=== PATIENT | male | born 1985 | race Caucasian/White ===

== ENCOUNTER 2016-07-28 05:12 | Inpatient (IN) | payer OTHER ==
[2016-07-09 14:11] VITALS: BMI 27.0
--- NOTE | 2016-07-25 16:15 | HISTORY & PHYSICAL EXAMINATION ---
DATE OF ADMISSION: 07/28/2016 CHIEF COMPLAINT: He presents with lumbar spine pain. HISTORY OF PRESENT ILLNESS: Arvin is a 31-year-old patient. 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 He has a complete void of bone at L5-S1 demonstrated by a nonunion. He also has some malplacement of some pedical screws from prior lumbar surgery. I think the screws were probably placed perfectly, they have migrated out. This is causing some instability to the lumbar spine. He has no fevers, sweats or chills. He has lumbar mechanical back pain. Better when resting. It is worse when he is up moving around walking. He is scheduled for surgery on the 07/[address] Jayy Cardona as well as Dr. Armenta. PREVIOUS MEDICAL HISTORY: Negative. PRIOR SURGICAL HISTORY: He had 2 back surgeries on his back. One is for a discectomy other is for a spinal fusion. ALLERGIES: No allergies to medications. CURRENT MEDICATIONS: List includes oxycodone, diazepam and ibuprofen. FAMILY MEDICAL HISTORY: Positive for diabetes. Negative for heart disease, stroke, blood clots, DVT, PE or cancer. SOCIAL HISTORY: He is single, never drinks, chews tobacco, very active lifestyle. REVIEW OF SYSTEMS: RESPIRATORY: Positive shortness of breath. PSYCHIATRIC: Positive for sleep problems. MUSCULOSKELETAL: Positive for joint pain, stiffness, weakness. NEUROLOGICAL: Positive or tingling. PHYSICAL EXAMINATION: CONSTITUTIONAL: Alert and oriented x3. He is 5 feet 11 inches, 198 pounds, no apparent distress. He is appropriately dressed for his age. CARDIOVASCULAR: He has got brisk capillary refill in distal extremities. Normal S1 and S2, no S3 was auscultated. RESPIRATORY: Equal and bilateral breath sounds. No rales, rhonchi or wheezing upon auscultation. GASTROINTESTINAL: Abdomen is soft, nontender. Normal bowel sounds auscultated. No organomegaly noted with percussion. INTEGUMENTARY: No skin rashes, lesions, no breakages of the skin. MUSCULOSKELETAL: He does have pain with forward flexion and extension. He ambulates without too much difficulty. There is slight loss of sensation along the L5 and S1 nerve root distribution. No pain with palpation or tenderness over his lumbar spine. No pain with straight leg raises bilaterally. X-rays were reviewed in our office and they demonstrate degenerative changes and a marked nonunion at L5-S1. 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 PLAN: At this time, he is being preoped for surgery on the 28 of July; it is going to be a posterior and anterior approach. First, we will start with a posterior approach with decompression at the L5-S1 lumbar levels. Also, remove the implants and readjustment of the implants at that time. This will then be followed with an anterior approach. The approach will be done by Dr. Armenta. This will be done in the same setting. The same anesthesia for the anterior lumbar interbody fusion will be the same as posterior. We will actually take out old implants from the anterior approach and replace them with good constructs from the [employer] and fill this with a combination of demineralized bone matrix and osteogenic protein. The risks of the surgery and the benefits were described to the patient and he is in full understanding and in compliance with that. Expectations were also discussed. We did give him medication for pain for his discharge. Provided him with a back brace as well.
[~2016-07-28] VITALS: Ht 180.3 cm; Wt 90.0 kg
[~2016-07-28 05:12] MED LIST: HYDR-5688 PO
[2016-07-28 05:37] VITALS: BP 124/91; PULSE 101; TEMP 36.9; O2SAT 97; Ht 180.3 cm; Wt 90.0 kg
[2016-07-28] MEDS ORDERED: CEFAZOLIN 2000 MG/60 ML D5W 60 ML IV SCH (06:00)
[2016-07-28] MEDS ORDERED: LACTATED RINGER'S 500 ML IV SCH (06:00)
[2016-07-28] MEDS ORDERED: NSS 1000ML IV SCH (06:00)
[2016-07-28] MEDS ORDERED: LACTATED RINGER'S 1000ML IV SCH (06:00)
[2016-07-28] MEDS ORDERED: EpHEDrine SULFATE INJ 50 MG/ML AMP ONE (06:22)
[2016-07-28] MEDS ORDERED: FENTANYL CITRATE INJ 50 MCG/1 ML 2 ML VIAL ONE ×3 (06:22→09:00)
[2016-07-28] MEDS ORDERED: ROCURONIUM BROMIDE 10 MG/ML 5 ML VIAL ONE ×4 (06:22→12:51)
[2016-07-28] MEDS ORDERED: NEOSTIGMINE METHYLSULFATE 5 MG/5 ML SYR ONE (06:22)
[2016-07-28] MEDS ORDERED: MIDAZOLAM HCL 1 MG/ML 2ML VIAL ONE (06:22)
[2016-07-28] MEDS ORDERED: GLYCOPYRROLATE INJ 0.2 MG/ML VIAL ONE (06:22)
[2016-07-28] MEDS ORDERED: DEXAMETHASONE SOD INJ 4 MG/ML VIAL ONE ×2 (06:22→08:01)
[2016-07-28] MEDS ORDERED: PROPOFOL IV EMULSION 10 MG/ML 20 ML VIAL IV ONE (06:22)
[2016-07-28] MEDS ORDERED: ONDANSETRON INJ 2 MG/ML 2 ML VIAL ONE ×2 (06:22→08:01)
[2016-07-28] MEDS ORDERED: LIDOCAINE HCL 2% 2 ML VIAL (20MG/ML) ONE (06:22)
[2016-07-28] MEDS ORDERED: PHENYLEPHRINE HCL INJ 10 MG/ML VIAL ONE (06:22)
[2016-07-28] MEDS ORDERED: ACETAMINOPHEN 1000 MG/100 ML IV IV ONE (06:55)
[2016-07-28] MEDS ORDERED: HYDROmorphone INJ 2 MG/ML SYR/VIAL ONE ×3 (06:57→14:34)
[2016-07-28] MEDS ORDERED: ONDANSETRON INJ 2 MG/ML 2 ML VIAL IV PRN ×2 (07:00→14:30)
[2016-07-28] MEDS ORDERED: HYDROmorphone INJ 1 MG/ML SYR IV PRN (07:00)
[2016-07-28] MEDS ORDERED: EpHEDrine SULFATE INJ 50 MG/ML AMP IV PRN (07:00)
[2016-07-28] MEDS ORDERED: NALOXONE HCL 0.4 MG/1 ML VIAL/CARP IV PRN ×2 (07:00→14:30)
[2016-07-28] MEDS ORDERED: LABETALOL HCL IV 5 MG/ML 20ML IV PRN (07:00)
[2016-07-28] MEDS ORDERED: FLUMAZENIL 0.1 MG/1 ML 10 ML VIAL IV PRN (07:00)
[2016-07-28] MEDS ORDERED: PHENYLEPHRINE 100MCG/ML 5ML SYR IV PRN (07:00)
[2016-07-28] MEDS ORDERED: ATROPINE SULFATE 0.1 MG/ML 5ML SYR IV PRN (07:00)
[2016-07-28] MEDS ORDERED: MEPERIDINE HCL 25 MG/ML CARP IV PRN (07:00)
--- NOTE | 2016-07-28 07:15 | History & Physical Bridge Note ---
H&P Re-Evaluation Bridge Note: I have examined the patient, reviewed the History & Physical and in the interval since the performance of the History & Physical I have noted the following changes of clinical significance:I had a long discussion with the patient and his mother. There is a chance of bleeding of course. We discussed retrograde ejaculation. They understand. No changes noted
--- NOTE | 2016-07-28 07:18 | History & Physical Bridge Note ---
H&P Re-Evaluation Bridge Note: I have examined the patient, reviewed the History & Physical and in the interval since the performance of the History & Physical I have noted the following changes of clinical significance: No changes noted
[2016-07-28] MEDS ORDERED: KETAMINE HCL INJ 50 MG/ML 10 ML VIAL ONE (08:16)
[2016-07-28] MEDS ORDERED: ESMOLOL HCL 10 MG/ML 10 ML VIAL ONE (08:38)
[2016-07-28] MEDS ORDERED: CEFAZOLIN SOD 1 GM VIAL ONE (11:47)
[2016-07-28] MEDS ORDERED: THROMBIN FOR SOLN 20000 UNIT KIT TOP ONE (13:45)
[2016-07-28] MEDS ORDERED: BACITRACIN 50000 UNIT VIAL IR ONE (13:45)
[2016-07-28] MEDS ORDERED: GELATIN SPONGE SZ 100 TOP ONE (13:45)
[2016-07-28] MEDS ORDERED: BUPIVACAINE/EPINEPHRINE 0.5% MPF 1:200,000 30 ML VIAL INJ ONE (13:45)
[2016-07-28] MEDS ORDERED: VANCOMYCIN HCL 1000MG/20ML VIAL TOP ONE (13:48)
[2016-07-28] MEDS ORDERED: SODIUM CHLORIDE 0.9% 1000ML 1,000 ML IV SCH (14:22)
--- NOTE | 2016-07-28 14:25 | [facility] Operative Report ---
Operative Report Operative Date Jul 28, 2016. Pre-Operative Diagnosis Non-union with degenerative changes L5-S1 Procedure(s) Performed ALIF L5-S1. removal of implants posterior L5-S1. decompression L5, S1. bilateral Surgeon Dr. Cardona and Dr. Armenta Chemical Laboratory Technician Surgeon(s) HARRISON Shirley and HARRISON Paz Estimated Blood Loss 150 ml Specimens A) Removed Hardware B) Spinal Cultures L5-S1 (sent to lab by OR aide at 1027) Complication(s) None Disposition Recovery Room / PACU I attest to the content of the Intraoperative Record and any orders documented therein. Any exceptions are noted below.
[2016-07-28] MEDS ORDERED: MAGNESIUM HYDROXIDE SUSP 30 ML UDC PO PRN (14:30)
[2016-07-28] MEDS ORDERED: LORAZEPAM 1 MG TAB PO PRN (14:30)
[2016-07-28] MEDS ORDERED: PROMETHAZINE HCL INJ 12.5 MG in SODIUM CHLORIDE 0.9% 50ML 50 ML IV PRN (14:30)
[2016-07-28] MEDS ORDERED: ACETAMINOPHEN 325 MG TAB PO PRN (14:30)
[2016-07-28] MEDS ORDERED: METOCLOPRAMIDE HCL INJ 5 MG/ML 2 ML VIAL IV PRN (14:30)
[2016-07-28] MEDS ORDERED: HYDROmorphone HCL 0.5MG/ML 50 ML CASSETTE ONE (14:35)
--- NOTE | 2016-07-28 14:40 | DIAGNOSTIC IMAGING REPORT ---
INTRAOPERATIVE RADIOGRAPH CLINICAL HISTORY: L5-S1 anterior fusion. Fluoroscopy time: 33 seconds. FINDINGS: A single spot fluoroscopic image of the lumbar spine is presented. There is evidence of discectomy at L5-S1 with anterior fusion at this level. Additional postoperative material is seen posteriorly. IMPRESSION: Intraoperative image from L5 -S1 anterior fusion as above. Electronically signed by: Timothy Bai M.D. 07/28/2016 2:05 PM Dictated Date/Time: 07/28/2016 2:04 PM
[2016-07-28] MEDS ORDERED: MoRPHine SULFATE 10 MG/ML CARP/VIAL ONE ×2 (14:48→14:59)
--- NOTE | 2016-07-28 14:48 | OPERATIVE REPORT ---
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 POSTOPERATIVE DIAGNOSES: Same. PROCEDURE: Anterior approach lumbar spine. COSURGEONS: Dr. Parminder Armenta and Dr. Jayy Cardona for an anterior lumbar decompression discectomy L5-S1, complete discectomy and anterior lumbar interbody fusion. The patient was then turned, procedure then was a posterior approach lumbar spine decompression laminectomy L5 and S1. Two level decompression foraminotomy, partial facetectomy and removal of loose implant L5-S1. SURGEON: Dr. Cardona. ASSOCIATE DATA SCIENTIST: Sylvester Palacios PA-C. COSURGEON: Dr. Parminder Armenta. COMPLICATIONS: Zero. BLOOD LOSS: In total 150-200 mL. Sponge and needle count correct at the close of each phase of the procedure. IMPLANTS USED: For anterior procedure by the [employer]. DESCRIPTION OF PROCEDURE: The patient was taken to the operating room, a general intubated anesthetic provided to the patient, kept supine on the operative table, prepped and draped sterile. Dr. Armenta was the approach surgeon, I will let him continue with the body of his surgical report. We then got down to the anterior aspect of the spine. We did a complete full discectomy. We were back almost to the posterior longitudinal ligament. We took out all the disc material, old implants, old bone, debrided the area. There was no sign of infection. Culture was obtained. We then took an anterior implant by the [employer], packed this with Infuse and this was placed into the exact location, transfixed superior and inferior, the fixation was superb. We irrigated, closed in layers. We then turned the patient to a posterior approach, prepped and draped sterile as well. Skin incision, fascial incision. We came down on the implants, they were grossly loose from fixation, both right-sided and left-sided. I barely needed instruments to remove them. We then irrigated thoroughly. We then came down and did a laminectomy at L5 and S1, foraminotomies, partial facetectomies, there was really a lot of scar removal, foraminotomies both sides without injury to the associated nerve roots. We then irrigated thoroughly, closed over a Hemovac drain and vancomycin powder with #1 Vicryl suture, 2-0 and 3-0 nylon on the skin surface. Sterile dressings applied. The patient returned to the recovery room satisfactory and stable. No apparent interoperative complications in either phase of the procedure. I attest to the content of the Intraoperative Record and any orders documented therein. Any exceptio ns are noted below.
[2016-07-28] MEDS: MoRPHine SULFATE 10 MG/ML CARP/VIAL IV PRN ×4 (14:53→15:08)
[2016-07-28] MEDS ORDERED: METOPROLOL TARTRATE 1 MG/ML VIAL ONE (14:53)
[2016-07-28 14:59] LABS: HEMATOCRIT 36.2 % (42-52)
[2016-07-28] MEDS ORDERED: METOPROLOL TARTRATE 1 MG/ML VIAL IV STA (15:08)
--- NOTE | 2016-07-28 15:25 | Anesthesiology Progress Note ---
Anesthesia Post Op Note Date & Time Jul 28, 2016 at 15:25 Vital Signs Pain Intensity: 3 Vital Signs Past 12 Hours Date Time Temp Pulse Resp B/P Pulse Ox O2 Delivery O2 Flow Rate FiO2 07/28/16 15:10 70 14 120/75 98 Nasal Cannula 4 07/28/16 15:00 89 14 148/89 100 Mask 10 07/28/16 14:57 110 147/104 07/28/16 14:50 110 12 147/104 100 Mask 10 07/28/16 14:40 102 12 148/106 100 Mask 10 07/28/16 14:32 36.5 91 12 161/116 100 Mask 10 07/28/16 05:37 36.9 101 20 124/91 97 Room Air Notes Mental Status: alert / awake / arousable, participated in evaluation Pt Amnestic to Procedure: Yes Nausea / Vomiting: adequately controlled Pain: adequately controlled Airway Patency, RR, SpO2: stable & adequate BP & HR: stable & adequate Hydration State: stable & adequate Anesthetic Complications: no major complications apparent
[2016-07-28 16:14] VITALS: BP 151/80; PULSE 80; TEMP 36.9; O2SAT 99
[2016-07-28] MEDS: SODIUM CHLORIDE 0.9% 1000ML 1,000 ML IV SCH (16:15)
[2016-07-28 16:38] VITALS: BP 164/79; PULSE 95; TEMP 36.5; O2SAT 98
[2016-07-28] MEDS: KETOROLAC TROMETHAMINE 30 MG/ML VIAL IV. SCH ×2 (17:36→23:45)
[2016-07-28] MEDS: DEXAMETHASONE INJ 10 MG in SYRINGE 0 ML IV SCH (17:40)
[2016-07-28] MEDS: CEFAZOLIN IV 1,000 MG in DEXTROSE 5% 50ML 50 ML IV SCH (17:47)
[2016-07-28 17:50] VITALS: BP 147/82; PULSE 111; TEMP 36.4; O2SAT 96
[2016-07-28 18:40] VITALS: BP 143/82; PULSE 110; TEMP 37; O2SAT 96
[2016-07-28] MEDS: LORAZEPAM INJ 1 MG in SYRINGE 0.5 ML IV PRN (19:30)
[2016-07-28 23:27] VITALS: BP 105/61; PULSE 118; TEMP 37.1; O2SAT 96
[2016-07-28] MEDS: HYDROmorphone HCL 0.5MG/ML 50 ML CASSETTE IV PRN (23:31)
[2016-07-29] MEDS: CEFAZOLIN IV 1,000 MG in DEXTROSE 5% 50ML 50 ML IV SCH ×2 (02:28→10:18)
[2016-07-29] MEDS: DEXAMETHASONE INJ 10 MG in SYRINGE 0 ML IV SCH ×3 (02:29→18:01)
[2016-07-29] MEDS: SODIUM CHLORIDE 0.9% 1000ML 1,000 ML IV SCH (02:29)
[2016-07-29] MEDS: LORAZEPAM INJ 1 MG in SYRINGE 0.5 ML IV PRN (02:36)
[2016-07-29 03:35] VITALS: BP 102/65; PULSE 96; TEMP 36.7; O2SAT 95
[2016-07-29] MEDS: KETOROLAC TROMETHAMINE 30 MG/ML VIAL IV. SCH ×3 (05:57→18:01)
[2016-07-29] MEDS ORDERED: BISACODYL 10 MG SUPP PR PRN (06:00)
[2016-07-29] MEDS ORDERED: BISACODYL 5 MG TABEC PO PRN (06:00)
[2016-07-29] MEDS: HYDROmorphone HCL 0.5MG/ML 50 ML CASSETTE IV PRN (06:53)
[2016-07-29 07:25] VITALS: BP 107/67; PULSE 99; TEMP 36.9; O2SAT 95
[2016-07-29] MEDS ORDERED: HYDROmorphone INJ 2 MG/ML SYR/VIAL IV PRN (08:00)
[2016-07-29] MEDS ORDERED: DC PCA SCH (08:00)
[2016-07-29] MEDS ORDERED: OXYCODONE/ACETAMINOPHEN 5-325 TAB PO PRN (08:00)
--- NOTE | 2016-07-29 08:06 | Anesthesiology Progress Note ---
Anesthesia Post Op Note Date & Time Jul 29, 2016 at 08:01 Vital Signs Vital Signs Past 12 Hours Date Time Temp Pulse Resp B/P Pulse Ox O2 Delivery O2 Flow Rate FiO2 07/29/16 07:25 36.9 99 16 107/67 95 Room Air 07/29/16 03:35 36.7 96 18 102/65 95 Room Air 07/28/16 23:53 Room Air 07/28/16 23:27 37.1 118 20 105/61 96 Room Air Notes Mental Status: alert / awake / arousable, participated in evaluation Pt Amnestic to Procedure: Yes Nausea / Vomiting: adequately controlled Pain: adequately controlled Airway Patency, RR, SpO2: stable & adequate BP & HR: stable & adequate Hydration State: stable & adequate Anesthetic Complications: Pt noted some swelling of left lower lip with a small cut after procedure. Swelling has reportedly gone down per patient is not a bother to him. It is unclear if this was related to airway manipulation or prone positioning during procedure. Instructed to apply ice to swelling if patient feels it is necessary but he declines the need at this time.
[2016-07-29] MEDS: POLYETHYLENE (MIRALAX) 17 GM PACK PO SCH (08:35)
[2016-07-29] MEDS: OXYCODONE/ACETAMINOPHEN 5-325 TAB PO PRN ×4 (08:37→21:45)
[2016-07-29] MEDS ORDERED: NURSING DECISION MEDICATION ORDER SCH (09:45)
[2016-07-29 11:21] VITALS: BP 125/70; PULSE 116; TEMP 36.9; O2SAT 95
[2016-07-29] MEDS: HYDROmorphone INJ 1 MG/ML SYR IV PRN ×3 (11:22→20:54)
[2016-07-29 14:56] VITALS: BP 137/72; PULSE 96; TEMP 37; O2SAT 96
--- NOTE | 2016-07-29 19:12 | SURGERY PROGRESS NOTE ---
DATE: 07/29/2016 Mr. Spain was seen today on 07/29/2016. I assisted Dr. Cardona yesterday by exposing the lumbosacral spine from an anterior fashion. The patient today has no drainage on his dressing. He had some pain as would be expected, but states that his legs "feel great." He no longer has radicular symptoms. I would leave the dressing on for a few more days, but from our standpoint, the patient can get up and start moving.
--- NOTE | 2016-07-29 20:15 | OPERATIVE REPORT ---
DATE OF OPERATION: 07/28/2016 PREOPERATIVE DIAGNOSIS: Lumbosacral spine disease, status post posterior fixation. POSTOPERATIVE DIAGNOSIS: Same. PROCEDURE: Anterior exposure for lumbosacral spine. SURGEON: Dr. Armenta. CO-SURGEON: Dr. Cardona. MUSIC GRAPHER: HARRISON Mckeon. ANESTHESIA: General anesthesia endotracheal intubation. INDICATION FOR PROCEDURE AND FINDINGS: Arvin Spain is a 31-year-old male who underwent a posterior approach for lumbosacral disc disease several years ago in [facility]. Dr. Cardona has worked him up thoroughly and feels that he is a candidate for replacement of this hardware and also an anterior approach to his L5-S1 disc. I was asked to provide this approach. I saw Mr. Spain in the office I had a long talk with the patient and his mother the morning of surgery. I warned him of possible retrograde ejaculation postoperatively. They understand. On 07/28/2016 the patient underwent an uncomplicated exposure of his anterior lumbosacral spine. I did a left paramedian incision starting just below the umbilicus and extending down close to the pubic rami. The rectus muscle was retracted laterally and the posterior sheath was opened. I then developed the plane between the peritoneum and the retroperitoneal space. I came upon the iliac artery vein and the distal aorta. We identified the left ureter and care was taken to avoid injury to this. Dr. Cardona was able to remove the disc almost in its entirety and replace this. I came and closed at the end of the case. He tolerated it well. DESCRIPTION OF PROCEDURE: The patient was brought to the operating room and laid in supine position. General anesthesia induced and endotracheal intubation was performed. After prepping and draping in usual sterile fashion, and infusing prophylactic antibiotics and after an appropriate timeout had been called. I made an incision just below the umbilicus in the left paramedian area down to above the pubic bone. This was done with #10 scalpel. Bovie electrocautery used to divide subcutaneous tissues down to the fascial layer which was opened anteriorly. The rectus muscle on left was retracted laterally. I opened up the posterior sheath and came upon the peritoneum which was bluntly and sharply retracted superiorly and dissected away and I came upon the pelvic brim and came upon the left iliac artery and vein. The ureter was adhesed. He actually had multiple adhesions along this which may have been due to his prior surgery. We had to meticulously dissect out the left iliac vein off of the sacrum to allow Dr. Cardona access to the L5-S1 disc space. I placed a vessel loop around the left ureter and retracted it out of the away. This was gently dissected out. Much of this dissection was done bluntly and with some sharp dissection. We were able to get enough exposure below the bifurcation of the iliacs and Dr. Cardona then came in and with use of x-ray localized this and then removed the disc very nicely. After he had placed the intervertebral spacer with bone graft as well as the anterior and posterior oblique screws, I was asked to come in and close. The ureter was peristalsing nicely, there was no evidence of a leak after the vessel loop had been removed. There was no significant bleeding. I irrigated this out with warm saline. I then closed the posterior sheath using a 0 Vicryl in a running continuous fashion. The rectus muscle then fell back into place. A #1 Vicryl was used in running continuous fashion to close the anterior rectus sheath and irrigated out the subcutaneous tissues quite well. Then 3-0 antimicrobial impregnated Vicryl suture was used in a running subcuticular fashion approximated the wound edges. We then placed skin glue on top of this. He tolerated it very well. I attest to the content of the Intraoperative Record and any orders documented therein. Any exceptio ns are noted below.
[2016-07-29 23:32] VITALS: BP 137/76; PULSE 95; TEMP 36.9; O2SAT 96
[2016-07-30] MEDS: HYDROmorphone INJ 1 MG/ML SYR IV PRN ×2 (00:23→08:09)
[2016-07-30] MEDS: DEXAMETHASONE INJ 10 MG in SYRINGE 0 ML IV SCH (02:12)
[2016-07-30] MEDS: OXYCODONE/ACETAMINOPHEN 5-325 TAB PO PRN ×2 (05:29→10:05)
[2016-07-30 06:07] VITALS: BP 132/85; PULSE 88; TEMP 36.6; O2SAT 96
--- NOTE | 2016-07-30 07:35 | Discharge Instructions ---
Discharge Instructions Admission Reason for Admission: Lumbar Iv Disc Disorders W/Myelopathy, Non-Union L Discharge Discharge Diagnosis / Problem: spinal surgery Discharge Goals Goal(s): Improve function Activity Recommendations Activity Limitations: as noted below Lifting Limitations: until after follow-up appointment Exercise/Sports Limitations: until after follow-up appointment May Resume Sexual Activity: after follow-up appointment Shower/Bathe: keep incision dry Driving or Machine Use: . Instructions / Follow-Up Instructions / Follow-Up home , rest , recover Current Hospital Diet Patient's current hospital diet: Regular Diet Discharge Diet Recommended Diet: Regular Diet Fluid Restriction: None Procedures Procedures Performed: L5-S1 Anterior Lumbar Interbody Fusion; Removal of Posterior Implants, Decompression of Bilateral Lumbar Pending Studies Studies pending at discharge: no Medical Emergencies . Who to Call and When: Medical Emergencies: If at any time you feel your situation is an emergency, please call 911 immediately. . Non-Emergent Contact Non-Emergency issues call your: Surgeon Call Non-Emergent contact if: temperature is above 101.5, your pain is unusual for you, wound has increased redness, you have any medication questions . "Provider Documentation" section prepared by Jayy Cardona. VTE Core Measure Inpt VTE Proph given/why not?: Treatment not indicated
[2016-07-30 08:00] VITALS: BP 140/80; PULSE 95; TEMP 36.9; O2SAT 98
--- NOTE | 2016-07-30 08:49 | SURGERY PROGRESS NOTE ---
DATE: 07/30/2016 Mr. Spain was seen today postop day 2 status post anterior, posterior approach for reoperative L5-S1 discectomy and stabilization by Dr. Cardona. I provided an anterior approach. His anterior incision is clean; however, he had some serous drainage. We placed an antimicrobial dressing back on it. He has no GI symptoms. He has good bowel sounds. Abdomen is nontender and he is tolerating a diet. We are going to continue dressings on this. The patient's cousin lives just above him and is an RN. We are going to continue antimicrobial dressings and I will see him back in the office next week for a wound check. KULDEEP
--- NOTE | 2016-07-30 08:53 | DISCHARGE SUMMARY ---
SUBJECTIVE: Moderate complaints of soreness. Denies neurological deficits. Denies chest pain, shortness breath, or abdominal discomfort. OBJECTIVE: Vital signs stable, 36.2 hematocrit. ASSESSMENT: Status post anterior, posterior lumbar spine surgery. DISPOSITION: Will discharge him home in improved stable condition. I want him home resting and recovering and I will emphasize that. Careful with bending, stooping, lifting and use a walker or cane, back brace. No bending, stooping, lifting, no driving, no significant activity. We will see him back for followup in 12 days. Remove his sutures in 12 days. He has medications on his chart of [facility] for pain. He has a prescription on chart only if needed for a walker and a cane.
[2016-07-30] MEDS: POLYETHYLENE (MIRALAX) 17 GM PACK PO SCH (09:00)
[2016-07-30 09:06] VITALS: O2SAT 98
[2016-07-30 09:12] VITALS: BP 140/80; PULSE 95; TEMP 36.9; O2SAT 98
[2016-07-30] MEDS ORDERED: HYDR-4383 PO (09:53)
== END 2016-07-30 10:25 | disposition home or self-care (01) | DRG 460 ==
LOC: ENRESERVDT → ENRESERVTM → C.ACU 05:12 → C.3E 07:00
PROVIDERS: ADMIT Orthopaedic Surgery Orthopaedic Surgery of the Spine; ATTEND Orthopaedic Surgery Orthopaedic Surgery of the Spine
PROC: 0TN70ZZ Release Left Ureter, Open Approach (ICD-10-PCS; principal; 2016-07-28 07:30)
PROC: 0SG30A0 Fusion of Lumbosacral Joint with Interbody Fusion Device, Anterior Approach, Anterior Column, Open Approach (ICD-10-PCS; 2016-07-28 07:30)
PROC: 0ST40ZZ Resection of Lumbosacral Disc, Open Approach (ICD-10-PCS; 2016-07-28 07:30)
PROC: 01NB0ZZ Release Lumbar Nerve, Open Approach (ICD-10-PCS; 2016-07-28 07:30)
PROC: 0SP304Z Removal of Internal Fixation Device from Lumbosacral Joint, Open Approach (ICD-10-PCS; 2016-07-28 07:30)
DX: M96.0 Pseudarthrosis after fusion or arthrodesis (principal); T84.226A Displacement of internal fixation device of vertebrae, initial encounter; Y83.8 Other surgical procedures as the cause of abnormal reaction of the patient, or of later complication, without mention of misadventure at the time of the procedure; Y79.2 Prosthetic and other implants, materials and accessory orthopedic devices associated with adverse incidents; M48.07 Spinal stenosis, lumbosacral region; M51.37 Other intervertebral disc degeneration, lumbosacral region; M53.2X6 Spinal instabilities, lumbar region; N99.4 Postprocedural pelvic peritoneal adhesions; S01.511A Laceration without foreign body of lip, initial encounter; Y92.234 Operating room of hospital as the place of occurrence of the external cause; Z79.891 Long term (current) use of opiate analgesic; Z79.899 Other long term (current) drug therapy; Z72.0 Tobacco use